=== PATIENT | female | born 1995 | race Two or more races ===

== ENCOUNTER 2025-01-05 23:55 | Emergency (ER) | payer MEDICAID, OTHER ==
[~2025-01-05] VITALS: Ht 157.5 cm; Wt 50.3 kg
[2025-01-06 00:29] VITALS: BP 136/82; TEMP 99.8; O2SAT 98
== END 2025-01-06 01:30 | disposition home or self-care (01) ==
LOC: ER 01-06
DX: J06.9 Acute upper respiratory infection, unspecified (principal); R50.9 Fever, unspecified; Z20.822 Contact with and (suspected) exposure to COVID-19